=== PATIENT | female | born 1985 | race Caucasian/White ===

== ENCOUNTER 2019-06-11 07:47 | Inpatient (IN) | payer OTHER ==
--- NOTE | 2019-06-01 11:42 | HP ---
Admitting History and Physical - Primary Care Physician PCP: Ben Manning - Admission Chief Complaint: High risk for breast cancer History of Present Illness: Patient is a 34 yo female who is high risk for breast cancer secondary to family h/o breast cancer and melanoma as well as personal h/o BRCA 2 positive status. Father and paternal cousins are BRCA 2 positive as well. Mammo done 2018 was negative and MRI done 07/2018 was negative as well. Patient is now presenting for a bilateral mastectomy with reconstruction. History Source: Patient Limitations to Obtaining History: No Limitations - Past Medical History Pulmonary: Yes: Asthma - Past Surgical History Past Surgical History: Yes: None Home Medications - Allergies Allergies/Adverse Reactions: Allergies Allergy/AdvReac Type Severity Reaction Status Date / Time No Known Allergies Allergy Verified 06/01/19 11:45 - Home Medications Home Medications (free text): Symbicort, Ventolin, HFA, Singulair, BCP Family Disease History - Family Disease History Family Disease History: CA: Grandparent (pat GM-colon cancer, ), Other: Father (BRCA 2 positive) Other Family History: pat GF-BRCA 2 pos. pat aunt x 2- BRCA 2 pos. pat aunt- melanoma. pat cousin x 2 -BRCA 2 pos. pat cousin x 1-breast cancer and BRCA 2 pos. pat sec cousin prostate cancer-BRCA 2 pos Review of Systems - Review of Systems Constitutional: reports: No Symptoms Cardiovascular: reports: No Symptoms Respiratory: reports: No Symptoms Physical Examination Breast(s): Yes: Other (Ptotic D-cup breasts without palpable suspicious masses or adenopathy noted bilaterally.) Problem List - Problems (1) BRCA positive Code(s): Z15.01 - GENETIC SUSCEPTIBILITY TO MALIGNANT NEOPLASM OF BREAST; Z15.09 - GENETIC SUSCEPTIBILITY TO OTHER MALIGNANT NEOPLASM (2) Family history of breast cancer Code(s): Z80.3 - FAMILY HISTORY OF MALIGNANT NEOPLASM OF BREAST Assessment/Plan Assessment: High risk for breast cancer Plan: Bilateral mastectomy with reconstruction
[2019-06-04 11:45] VITALS: BMI 26.6
[2019-06-11] MEDS ORDERED: SODIUM CHLORIDE 0.9% P/F 10 ML VIAL IJ ONE (07:56)
[2019-06-11] MEDS ORDERED: GENTAMICIN SO4 80 MG/2 ML VIAL ONE (07:56)
[2019-06-11] MEDS ORDERED: BUPIVACAINE HCL/PF 2.5 MG/ML - 30 ML VIAL IJ ONE (07:56)
[2019-06-11] MEDS ORDERED: ceFAZolin SODIUM 1 GM VIAL ONE (07:56)
[2019-06-11] MEDS ORDERED: BUPIVACAINE LIPOSOME/PF (EXPAREL) 266 MG/20 ML VIAL ONE (07:58)
[2019-06-11] MEDS ORDERED: fentaNYL CITRATE 250 MCG/5 ML VIAL ONE (09:27)
[2019-06-11] MEDS ORDERED: MIDAZOLAM HCL 2 MG/2 ML SINGLE DOSE VIAL ONE (09:27)
[2019-06-11] MEDS ORDERED: ROCURONIUM BROMIDE 50 MG/5 ML SYRINGE ONE (09:28)
[2019-06-11] MEDS ORDERED: PROPOFOL 20 ML ONE (09:28)
[2019-06-11] MEDS ORDERED: SCOPOLAMINE HYDROBROMIDE 1 PATCH PATCH.TD72 ONE (09:45)
[2019-06-11] MEDS ORDERED: ONDANSETRON 4 MG/2 ML VIAL ONE (09:51)
[2019-06-11] MEDS ORDERED: ONDANSETRON 4 MG/2 ML VIAL IVPUSH PRN (12:09)
[2019-06-11] MEDS ORDERED: oxyCODONE HCL 5 MG TABLET PO PRN (12:09)
[2019-06-11] MEDS ORDERED: ACETAMINOPHEN 325 MG TABLET (FP) PO PRN (12:09)
[2019-06-11] MEDS ORDERED: ALBUTEROL SO4 8 GM HFA INHALER IH PRN (12:11)
[2019-06-11] MEDS ORDERED: PROMETHAZINE HCL 25 MG/1 ML VIAL IVPUSH PRN (12:46)
[2019-06-11] MEDS ORDERED: HYDROmorphone HCL CARPU-JECT 1 MG/1 ML DISP.SYRIN IVPUSH PRN (12:46)
[2019-06-11] MEDS ORDERED: NEOSTIGMINE METHYLSULFATE 0.5 MG/ML - 10 ML MDV ONE ×2 (12:54→12:57)
[2019-06-11] MEDS ORDERED: GLYCOPYRROLATE 0.2 MG/1 ML VIAL ONE ×3 (12:54→12:55)
[2019-06-11] MEDS ORDERED: PROMETHAZINE HCL 25 MG/1 ML VIAL ONE (13:29)
--- NOTE | 2019-06-11 15:03 | OP ---
DATE OF OPERATION: 06/11/2019 PREOPERATIVE DIAGNOSIS: Genetic susceptibility to breast cancer BRCA2 positive. POSTOPERATIVE DIAGNOSIS: Genetic susceptibility to breast cancer BRCA2 positive. PROCEDURE: Bilateral total nipple-sparing mastectomies through an inframammary approach with bilateral direct-implant reconstruction with AlloDerm. ANESTHESIA: General endotracheal. PRIMARY SURGEON: Steven Manning MD BEVELER: NAVARRO Corona PRIMARY SURGEON FOR THE BILATERAL DIRECT-IMPLANT RECONSTRUCTION: Steven Singh MD COMPLICATIONS: None. Briefly, the patient is a 34-year-old, G1, P1, premenopausal white female of Ashkenazi/[place] descent with a family history with her paternal cousin who had breast cancer at age 35, who tested BRCA2 positive. She has a paternal second cousin who had prostate cancer tested BRCA2 positive. Her paternal grandmother had colon cancer, and paternal aunt had melanoma. The patient tested BRCA2 positive in 2017 and also has 2 paternal cousins and 2 paternal aunts as well as her father and paternal grandfather all with the same mutation. The patient has been getting close surveillance and last mammography February 2019 was negative and MRI July 2018 was negative. She was seen in consultation for prophylactic risk reduction mastectomy and decided to go forward with the procedure and first had bilateral reduction mastopexy procedures by Dr. Singh. She now presents for the bilateral prophylactic nipple-sparing mastectomies. She was brought in through same-day surgery on June 11, 2019. In the holding area, site verification was made, and informed consent was obtained. She was marked preoperatively by the plastic surgeon. She was brought into the operating room and laid on the OR table in a supine position. Venodynes were placed on the lower extremities prior to induction. She received 2 g of Ancef prior to incision. She underwent general endotracheal anesthesia, and both breasts were sterilely prepped and draped in usual fashion. Timeout was performed. The left breast nipple-sparing mastectomy was first performed. Incision was made using the inframammary incision from her previous reduction mastopexy, and the incision was about 9 cm in length. Skin edges were everted, and the breast was retracted inferiorly using Kyle clamps. The PEAK radiofrequency device was used to raise the skin flap superiorly to the level of the clavicle, medially to the level of the sternum, laterally to the level of the latissimus, and inferiorly below the level of the inframammary fold. The breast was taken down off the pectoralis major muscle from inferomedial to superolateral, completely removed intact. It was oriented with a long lateral, short superior suture and weighed to allow for appropriate cosmetic result. Hemostasis was achieved, and the skin flaps were inspected and trimmed to remove all visible breast tissue and for a good cosmetic result. Retroareolar biopsy was taken underneath the left nipple-areolar complex, sent for frozen section, came back negative; so, the left nipple was spared. At this point, the right breast was approached. Again, a 10-cm incision was made using the previous inframammary incision from her prior reduction mastopexy surgery. Skin edges were everted, and breast was retracted inferiorly using Porter clamps. The skin flap was again raised using the PEAK radiofrequency device superiorly to the level of the clavicle, medially to the level of the sternum, laterally to the level of the latissimus, and inferiorly below the level of the inframammary fold. The breast was taken down off the pectoralis major muscle from inferomedial to superolateral and completely removed intact. It was oriented with a long lateral, short superior suture, weighed to allow for appropriate cosmetic result. Skin flap was inspected and trimmed to remove all visible breast tissue and for a good cosmetic result. A retroareolar biopsy was taken underneath the right nipple-areolar complex, sent for frozen section. It came back negative; so, the right nipple was spared. Hemostasis was achieved, and both wounds were copiously irrigated with warm sterile saline. At this point, Dr. Singh became the primary surgeon to perform the bilateral subpectoral, direct-implant reconstructions with AlloDerm. The AlloDerm will be sutured into the inferolateral aspect of both pectoralis major muscles to allow for the direct-implant reconstruction. We did use the Spy skin perfusion device during the case, which showed good skin perfusion and some delayed, but good perfusion of the nipple-areolar complexes. All wounds will be closed by Plastic Surgery using interrupted 3-0 PDS and a running 4-0 subcuticular PDS suture. Two drains will be placed around each implant, brought through separate stab incisions on the lateral skin fold. These will be sutured in place. All sponge and needle counts were correct at this point of the case, and estimated blood loss was about 100 mL. She was hemodynamically stable at this point. The patient will be extubated and recovered in the postanesthesia care unit after the reconstruction is performed. She will be admitted postoperatively for pain and wound management. STEVEN MANNING M.D. [id number]
[2019-06-11] MEDS: CEFAZOLIN 1 GM/D5W 1 GM/50 ML BAG IVPB SCH ×2 (15:15→21:22)
[2019-06-11] MEDS: diazePAM 5 MG TABLET PO PRN (17:05)
[2019-06-11] MEDS ORDERED: MONTELUKAST NA 10 MG TABLET PO SCH (18:00)
[2019-06-11] MEDS ORDERED: PT OWN MED DRAWER 7, Y5N ONE (21:06)
[2019-06-11] MEDS: BUDESONIDE/FORMETEROL FUMARATE 80/4.5 mcg INHALER IH SCH (21:23)
[2019-06-11] MEDS: DEXTROSE 5%-0.45% SALINE 1,000 ML IV SCH (21:23)
[2019-06-11] MEDS: MONTELUKAST NA 10 MG TABLET PO SCH (21:23)
[2019-06-12] MEDS: CEFAZOLIN 1 GM/D5W 1 GM/50 ML BAG IVPB SCH ×4 (03:30→20:57)
--- NOTE | 2019-06-12 07:40 | SPA.POSTOP ---
- POST-OP NOTE POD #1 s/p Bilateral mastectomy with reconstruction with implants and alloderm No acute events since surgical procedure per RN notes. Patient resting comfortably. Pain management via prn meds. Denies n/v/f/c, CP or SOB. Last Vital Signs Temp Pulse Resp BP Pulse Ox 98.7 F 71 19 113/57 L 100 06/12/19 04:00 06/12/19 04:00 06/12/19 04:00 06/12/19 04:00 06/12/19 01:24 Vital Signs Temp 98.7 F 06/12/19 04:00 Pulse 71 06/12/19 04:00 Resp 19 06/12/19 04:00 BP 113/57 L 06/12/19 04:00 Pulse Ox 100 06/12/19 01:24 Intake & Output 06/11/19 06/11/19 06/12/19 11:59 23:59 11:59 Intake Total 1500 600 Output Total 745 100 Balance 1500 -145 -100 Weight 160 lb Intake: IV 1500 200 Oral 400 Output: Drainage 245 100 #1R 30 20 #2R 40 20 #3L 40 20 #4L 45 40 Urine 500 Void 500 Other: Voiding Method Toilet Height 5 ft 5 in Body Mass Index (BMI) 26.6 Physical Exam General: No acute distress. Chest: incisions are clean with no erythema or discharge, nipples and skin pink and warm. Drains in place with serosanguinous drainage. Cor: Regular rhythm LE: Soft, non-tender bilat. SCD's bilat. Problem List - Problems (1) BRCA positive Assessment/Plan: Plan -pt appears to be doing well -OOB/ambulate -pain control -DVT ppx -monitor drain output. Code(s): Z15.01 - GENETIC SUSCEPTIBILITY TO MALIGNANT NEOPLASM OF BREAST; Z15.09 - GENETIC SUSCEPTIBILITY TO OTHER MALIGNANT NEOPLASM
[2019-06-12 07:53] LABS: HEMATOCRIT 36.4 % (32.4-45.2); HEMOGLOBIN 12.3 GM/dl (10.7-15.3); MCH 30.5 pg (25.7-33.7); MCHC 33.9 g/dl (32.0-36.0); MEAN CELL VOLUME 90.1 fl (80-96); MEAN PLT VOLUME 10.8 fl (7.5-11.1); PLATELET COUNT 209 K/MM3 (134-434); RBC 4.04 M/mm3 (3.60-5.2); RDW 12.5 % (11.6-15.6); WHITE BLOOD COUNT 9.7 K/mm3 (4.0-10.8)
[2019-06-12] MEDS: diazePAM 5 MG TABLET PO PRN (08:46)
--- NOTE | 2019-06-12 09:20 | PN ---
Progress Note, Physician Chief Complaint: BRCA positive S/P bilateral total mastectomies nipple sparing, alloderm and implant reconstruction History of Present Illness: Patient OOB in hallway, no nausea or vomiting, oxycodone and valium prn for pain , Bare hugger for next [address] Manning - Current Medication List Current Medications: Active Medications Acetaminophen (Tylenol -) 650 mg PO Q4H PRN PRN Reason: FEVER Albuterol Sulfate (Ventolin Hfa Inhaler -) 2 puff IH PRN PRN PRN Reason: ASTHMA Budesonide/Formoterol Fumarate (Symbicort 80/4.5mcg -) 2 puff IH BID YUDI Last Admin: 06/11/19 21:23 Dose: Not Given Diazepam (Valium -) 5 mg PO Q8H PRN PRN Reason: MUSCLE SPASMS Last Admin: 06/12/19 08:46 Dose: 5 mg Ethinyl Estradiol/Norethindron/Iron (Estrostep Fe-28 (Nf) -) 1 tab PO DAILY YUDI Hydromorphone HCl (Dilaudid Injection -) 0.5 mg IVPUSH [id number] PRN PRN Reason: PAIN-PACU ORDER X 4 DOSES ONLY Cefazolin Sodium (Ancef 1 Gm Premixed Ivpb -) 1 gm in 50 mls @ 100 mls/hr IVPB Q6H-IV YUDI Stop: 06/18/19 14:59 Last Admin: 06/12/19 03:30 Dose: 100 mls/hr Dextrose/Sodium Chloride (D5-1/2ns -) 1,000 mls @ 100 mls/hr IV ASDIR [facility] Last Admin: 06/11/19 21:23 Dose: 100 mls/hr Lactated Ringer's (Lactated Ringers Solution) 1,000 mls @ 75 mls/hr IV ASDIR YUDI Montelukast Sodium (Singulair -) 10 mg PO HS [facility] Last Admin: 06/11/19 21:23 Dose: Not Given Ondansetron HCl (Zofran Injection) 4 mg IVPUSH Q6H PRN PRN Reason: NAUSEA AND/OR VOMITING Oxycodone HCl (Roxicodone -) 5 mg PO Q4H PRN PRN Reason: PAIN LEVEL 1-5 Last Admin: 08/15/19 22:17 Dose: 5 mg Oxycodone HCl (Roxicodone -) 10 mg PO Q4H PRN PRN Reason: PAIN LEVEL 6-10 Promethazine HCl (Phenergan Injection -) 12.5 mg IVPUSH Q6H PRN PRN Reason: NAUSEA-FOR RESCUE AFTER 15 MIN Last Admin: 06/11/19 13:30 Dose: 6.25 mg - Objective Vital Signs: Vital Signs Temperature 98.7 F 06/12/19 04:00 Pulse Rate 71 06/12/19 04:00 Respiratory Rate 06/12/19 04:00 Blood Pressure 113/57 L 06/12/19 04:00 O2 Sat by Pulse Oximetry (%) 100 06/12/19 01:24 Constitutional: Yes: No Distress Breast(s): Yes: Other (Bilateral flaps and nipples viable,incision intact with steristrips, Rajesh drains functioning well) Labs: CBC, BMP 06/12/19 07:00 Problem List - Problems (1) BRCA positive Code(s): Z15.01 - GENETIC SUSCEPTIBILITY TO MALIGNANT NEOPLASM OF BREAST; Z15.09 - GENETIC SUSCEPTIBILITY TO OTHER MALIGNANT NEOPLASM Assessment/Plan IV antibiotics OOB and SCD while in bed Valium/oxycodone prn pain Spirometry Bare hugger next 24 hours plan for discharge tomorrow
[2019-06-12] MEDS ORDERED: PT OWN MED DRAWER 7, Y5N ONE (09:30)
[2019-06-12] MEDS: LACTATED RINGERS SOLUTION 1,000 ML IV SCH ×2 (09:49→15:03)
[2019-06-12] MEDS: BUDESONIDE/FORMETEROL FUMARATE 80/4.5 mcg INHALER IH SCH ×2 (09:52→21:14)
[2019-06-12] MEDS ORDERED: NORETH A ET ESTRA PO SCH (10:00)
[2019-06-12] MEDS ORDERED: FE FUMARATE PO SCH (10:00)
--- NOTE | 2019-06-12 12:04 | PN ---
Progress Note (short form) - Note Progress Note: ANESTHESIA POST OP 34 YO FEMALE POD#1 S/P BL MASTECTOMY, GETA Patient resting in bed. Tolerating PO. Pain adequately controlled VSS, Afebrile Continue current care. Encouraged IS and ambulation
[2019-06-12] MEDS: oxyCODONE HCL 5 MG TABLET PO PRN ×3 (14:58→22:48)
[2019-06-12] MEDS: DEXTROSE 5%-0.45% SALINE 1,000 ML IV SCH (15:03)
[2019-06-12] MEDS: MONTELUKAST NA 10 MG TABLET PO SCH (21:14)
[2019-06-13] MEDS: CEFAZOLIN 1 GM/D5W 1 GM/50 ML BAG IVPB SCH ×2 (03:50→09:53)
[2019-06-13] MEDS: oxyCODONE HCL 5 MG TABLET PO PRN ×2 (04:39→09:53)
[2019-06-13] MEDS: BUDESONIDE/FORMETEROL FUMARATE 80/4.5 mcg INHALER IH SCH (09:54)
--- NOTE | 2019-06-13 10:30 | PN ---
Progress Note, Physician Chief Complaint: Genetic susceptibility for breast cancer BRCA2+ History of Present Illness: The patient was found to be BRCA2 positive and decided on bilateral prophylactic nipple sparing mastectomies and direct to implant reconstruction which was performed on June 11, 2019. She was admitted postoperatively for postop pain and wound care. - Current Medication List Current Medications: Active Medications Acetaminophen (Tylenol -) 650 mg PO Q4H PRN PRN Reason: FEVER Albuterol Sulfate (Ventolin Hfa Inhaler -) 2 puff IH PRN PRN PRN Reason: ASTHMA Budesonide/Formoterol Fumarate (Symbicort 80/4.5mcg -) 2 puff IH BID YUDI Last Admin: 06/13/19 09:54 Dose: 2 puff Diazepam (Valium -) 5 mg PO Q8H PRN PRN Reason: MUSCLE SPASMS Last Admin: 06/12/19 08:46 Dose: 5 mg Ethinyl Estradiol/Norethindron/Iron (Estrostep Fe-28 (Nf) -) 1 tab PO DAILY YUDI Hydromorphone HCl (Dilaudid Injection -) 0.5 mg IVPUSH [id number] PRN PRN Reason: PAIN-PACU ORDER X 4 DOSES ONLY Cefazolin Sodium (Ancef 1 Gm Premixed Ivpb -) 1 gm in 50 mls @ 100 mls/hr IVPB Q6H-IV YUDI Stop: 06/18/19 14:59 Last Admin: 06/13/19 09:53 Dose: 100 mls/hr Dextrose/Sodium Chloride (D5-1/2ns -) 1,000 mls @ 100 mls/hr IV ASDIR [facility] Last Admin: 06/12/19 15:03 Dose: Not Given Lactated Ringer's (Lactated Ringers Solution) 1,000 mls @ 75 mls/hr IV ASDIR YUDI Last Admin: 06/12/19 15:03 Dose: Not Given Montelukast Sodium (Singulair -) 10 mg PO HS [facility] Last Admin: 06/12/19 21:14 Dose: 10 mg Ondansetron HCl (Zofran Injection) 4 mg IVPUSH Q6H PRN PRN Reason: NAUSEA AND/OR VOMITING Oxycodone HCl (Roxicodone -) 5 mg PO Q4H PRN PRN Reason: PAIN LEVEL 1-5 Last Admin: 06/11/19 22:17 Dose: 5 mg Oxycodone HCl (Roxicodone -) 10 mg PO Q4H PRN PRN Reason: PAIN LEVEL 6-10 Last Admin: 06/13/19 09:53 Dose: 10 mg Promethazine HCl (Phenergan Injection -) 12.5 mg IVPUSH Q6H PRN PRN Reason: NAUSEA-FOR RESCUE AFTER 15 MIN Last Admin: 06/11/19 13:30 Dose: 6.25 mg - Objective Vital Signs: Vital Signs Temperature 98.9 F 06/13/19 07:39 Pulse Rate 83 06/13/19 07:39 Respiratory Rate 19 06/13/19 07:39 Blood Pressure 106/57 L 06/13/19 07:39 O2 Sat by Pulse Oximetry (%) 100 06/13/19 07:39 Constitutional: Yes: Well Nourished, No Distress, Calm Eyes: Yes: WNL HENT: Yes: Atraumatic, Normocephalic Neck: Yes: WNL Cardiovascular: Yes: Regular Rate and Rhythm Respiratory: Yes: Regular, CTA Bilaterally Gastrointestinal: Yes: Normal Bowel Sounds, Soft ...Rectal Exam: Yes: Deferred Genitourinary: Yes: WNL Breast(s): Yes: Other (Mastectomy wounds clean, dry, and intact. Drains functioning well. Skin flap warm and viable with mild nipple color change.) Musculoskeletal: Yes: WNL Extremities: Yes: WNL Integumentary: Yes: WNL Wound/Incision: Yes: Clean/Dry, Well Approximated Neurological: Yes: Alert, Oriented ...Motor Strength: WNL Psychiatric: Yes: WNL Labs: CBC, BMP 06/12/19 07:00 Problem List - Problems (1) BRCA positive Assessment/Plan: The patient is doing well POD#2 s/p bilateral prophylactic nipple sparing mastectomies with direct to implant reconstructions with alloderm. She has good pain control and is ambulating well. Her wounds are healing well with viable skin flaps and only mild color change around the nipple. She had prior reduction mastopexies to allow the direct to implant nipple sparing procedure. Drains functioning well. Stable for discharge today. Home on percocet for pain and cefadroxil antibiotics. Follow up with Drs. Manning and Samantha in 1 week. Code(s): Z15.01 - GENETIC SUSCEPTIBILITY TO MALIGNANT NEOPLASM OF BREAST; Z15.09 - GENETIC SUSCEPTIBILITY TO OTHER MALIGNANT NEOPLASM (2) Family history of breast cancer Code(s): Z80.3 - FAMILY HISTORY OF MALIGNANT NEOPLASM OF BREAST
--- NOTE | 2019-06-13 10:35 | DS ---
Physical Examination Vital Signs: Vital Signs Temperature 98.9 F 06/13/19 07:39 Pulse Rate 83 06/13/19 07:39 Respiratory Rate 19 06/13/19 07:39 Blood Pressure 106/57 L 06/13/19 07:39 O2 Sat by Pulse Oximetry (%) 100 06/13/19 07:39 Constitutional: Yes: Well Nourished, No Distress, Calm Eyes: Yes: WNL HENT: Yes: Atraumatic, Normocephalic Neck: Yes: WNL Cardiovascular: Yes: Regular Rate and Rhythm Respiratory: Yes: Regular, CTA Bilaterally Gastrointestinal: Yes: Normal Bowel Sounds, Soft ...Rectal Exam: Yes: Deferred Renal/: Yes: WNL Breast(s): Yes: Other (Matectomy wounds clean, dry, and intact with viable skin flaps and only mild nipple skin color change. Drains functioning well.) Musculoskeletal: Yes: WNL Extremities: Yes: WNL Integumentary: Yes: WNL Wound/Incision: Yes: Clean/Dry, Well Approximated Neurological: Yes: Alert, Oriented ...Motor Strength: WNL Labs: CBC, BMP 06/12/19 07:00 Discharge Summary Reason For Visit: GENETIC SUSCEPTIBILITY Genetic susceptibility for breast cancer BRCA2+ Procedures: Principal: Bilateral nipple sparing mastectomies with direct to implant reconstruction with alloderm Hospital Course: The patient was admitted postoperatively for postop pain control and wound care. She was doing well and had good pain control with viable skin flaps for discharge by POD#2. She should follow up with Drs. Manning and Samantha in 1 week. NO heavy lifting or exercise. No bath shower until drains removed. Record drain outputs daily. Keep compressive bra on day/night. Condition: Good - Instructions Diet, Activity, Other Instructions: Post Operative Instructions - [facility] We hope your recovery will be uneventful. For those of you who have been given general anesthesia, there is a possibility you might have some lightheadedness and possibly nausea. It is important that each patient, especially those who have had general anesthesia, follow these instructions, please: 1. Do NOT operate a motor vehicle for 24 hours. 2. Do NOT drink any alcoholic beverages for 24 hours. 3. Do NOT take any sedatives, narcotics, or tranquilizers for 24 hours unless specifically ordered by your surgeon. 4. Do NOT undertake any strenuous exercise or outside activity for 24 hours unless specifically permitted by your surgeon. 5. Eat light foods that are easy to digest. If you have any problems with nausea and vomiting, lie down and rest. If it continues, call your surgeon. 6. Call your surgeon AT ONCE if you have problems with: a. Bleeding b. Urinating c. Excessive pain or drainage d. Numbness If any problems occur, call your physician first. If you cannot reach him/her, call the Ambulatory Surgery Unit at [phone], or the Emergency Room at [phone]. Follow up with Drs. Manning / Clau in 7 days. Medication: Vicodin E-S OR Percocet 1-2 tablets every 4-6 hrs as needed for 5-7 days. Wound Care: Keep wound dry and clean for 48 hours. You may remove the dressing after 48 hours and may shower. Keep steri-strips in place until follow-up appointment No heavy lifting or strenuous activities. BREAST SURGERY INSTRUCTIONS Zeke Manning M.D., FACS Ben Manning M.D., FACS Consuelo Olguin M.D., FACS 1. Please call the office at to make a follow up appointment with your surgeon. This number can be also used for any urgent issues you may have. 2. Call us immediately if any of the following occur: *Bleeding from the incision or drain site (a small amount is normal) *Fever or chills *Redness and worsening tenderness around the surgical site *Drainage of pus or fluid from the incision or drain site 3. You may change the surgical dressing two (2) days after your surgery, and may shower then. If you have drains, you may shower after they have been removed, until then take a sponge bath. 4. It is normal for there to be some bruising and tenderness around the surgical site, and the breast may also be firm in this area. 5. Your surgeon used 3M DuraPrep Surgical Solution, a bacteria-killing skin preparation. It is recommended that this film remain on the skin after the procedure. The film will gradually wear away. If, however, early removal is desired: 1. Apply 8610 or 8611 3M Remover solution to the prepped area, keeping away from the wound edge or puncture site. Wipe off with a disposable towel. OR 2. Soak gauze with 70% Isopropyl alcohol and place on the prepped area for at least 40 seconds. Lightly scrub to remove the solution. 6. Please wear a comfortable bra (sports or surgical bra) all day and all night until your first follow-up visit with your surgeon. 7. The pain medicine you have been prescribed may make you constipated; make sure you drink plenty of water. You may use an over the counter laxative if needed. 8. You may resume your normal diet after surgery, although you may want to avoid rich foods for the first twenty-four (24) hours after surgery. Alcoholic drinks should be avoided while taking the prescribed pain medicine. 9. You may resume normal activities as long as there is no discomfort, but do not do upper body exercises until after your follow-up appointment. Do not lift anything heavier than a large phone book. You may resume driving once you have stopped taking the prescribed pain medicine and feel comfortable doing arm movements. WEAR BRA, No shower, empty and record VICKIE output twice daily Referrals: Ben Manning MD [Staff Physician] - Rudy Singh MD [Staff Physician] - Disposition: HOME - Home Medications Comprehensive Discharge Medication List: Ambulatory Orders Albuterol Sulfate Inhaler - [Ventolin HFA Inhaler -] 2 inh PO PRN PRN 06/04/19 Budesonide/Formeterol Fumarate [SYMBICORT 80/4.5mcg -] 2 inh PO BID 06/04/19 Magnesium 3 tab PO DAILY 06/04/19 Montelukast Sodium [Singulair] 10 mg PO DAILY 06/04/19 Multivitamin [Multiple Vitamins] 1 each PO DAILY 06/04/19 Norethindrone-E.estradiol-Iron [Tilia Fe 28 Tablet] 1 each PO DAILY 06/04/19 Cefadroxil 500 mg PO BID 10 Days #20 capsule 06/12/19 Diazepam [Valium] 5 mg PO Q8H #10 tablet MDD 2 06/12/19 Oxycodone HCl/Acetaminophen [Percocet 5-325 mg Tablet] 1 - 2 tab PO Q6H PRN #30 tab MDD 6 06/12/19
[2019-06-13] MEDS: DEXTROSE 5%-0.45% SALINE 1,000 ML IV SCH (12:04)
[2019-06-13] MEDS: LACTATED RINGERS SOLUTION 1,000 ML IV SCH (12:05)
[2019-06-13 13:07] VITALS: BP 110/58; PULSE 79; TEMP 98.1
--- NOTE | 2019-06-15 18:50 | OP ---
DATE OF OPERATION: 06/11/2019 PREOPERATIVE DIAGNOSES: 1. Bilateral acquired chest wall deformity status post bilateral mastectomy (611.89). 2. Personal history of genetic carcinoma. POSTOPERATIVE DIAGNOSES: 1. Bilateral acquired chest wall deformity status post bilateral mastectomy (611.89). 2. Personal history of genetic carcinoma. PROCEDURE: 1. Right immediate breast reconstruction utilizing immediate insertion of silicone breast implant and AlloDerm SELECT tissue matrix contour medium perforated tissue reconstruction. 2. Left immediate breast reconstruction utilizing immediate insertion of silicone breast implant and AlloDerm SELECT tissue matrix contour medium perforated tissue reconstruction. 3. Intravenous injection of indocyanine green dye and intraoperative diagnostic evaluation of non-coronary intraoperative fluorescein vascular angiography x 2. SURGEON: Dr. Hattie Singh ADMITTING COUNSELOR: Steven Manning MD ANESTHESIA: GENERAL OPERATIVE PROCEDURE IN DETAIL: The patient was taken to the operating room. After induction of general anesthesia in the supine position, both arms were extended and padded. Venodyne boots were placed. The entire chest wall was painted with ChloraPrep solution over its entire extent, and sterile drapes were placed in the usual fashion. The markings, which had been made in the standing position preoperatively, were reoutlined with the patient's knowledge. Time-out procedure was performed. Attention was turned by Dr. Manning to the mastectomies. Bilateral inframammary incisions were made and Dr. Manning performed mastectomies. This will be dictated under separate cover. Upon completion of the mastectomies, the wounds were copiously irrigated and attention was turned to the right breast. A subpectoral dissection was begun on the right breast, superiorly from the second rib, medially to the sternal fibers, and down to the inframammary fold, elevating the pectoralis major muscle from its insertion. At this point, an 8.0 x 16.0 sheet of AlloDerm was brought into the field and sutured superiorly along the pectoralis major muscle after rehydration. This was carried along the lateral mammary fold and down the side of the breast reconstruction. At this point, a Sientra smooth, round, high-profile, style 107, 505 mL implant was chosen. The left breast tissue removed was 527 gm, and the right breast approximately 497 gm. This implant was placed and then sutured with 3-0 Vicryl suture continued along the inframammary fold, completely covering the implant itself. The exact same procedure was carried out symmetrically on the opposite breast, also placing a Sientra smooth, round, high-profile, style 107, 505 mL implant in the same subpectoral pocket. Good symmetry was seen in the sitting position. After the implants were in place, the patient was injected with 10 mL of indocyanine green dye and the Spy imaging system was brought into the field. The skin flowed to the right and left breasts and the nipple areolar complex, and the entire skin flaps were evaluated and seen to be viable with good blood flow. Two Stevo drains were brought out through separate stab wounds laterally. The Smart Infuser pump catheter was inserted medially and into the subpectoral position. Both wounds were closed symmetrically using 3-0 PDS suture on the deep tissue, 3-0 in a deep dermal fashion, and 4-0 in a subcuticular fashion. Both wounds were dressed sterilely with Mastisol and Steri-Strips with a surgical bra and a compression strap. The patient tolerated the procedure well. She was awakened, extubated and transferred to the recovery room in satisfactory condition. The employee relations assistant was present during the entire portion of the operation and closure. STEVEN SINGH M.D. [id number]
--- NOTE | 2019-06-16 10:39 | PATH ---
Surgical Pathology Report Patient Name: HANSA MILLS [facility]. Rec. #: [id number] /Age/Gender: 1985 (Age: 34) / F Account: [id number] Location[facility] Taken: 06/11/2019 Received: 06/11/2019 Reported: 06/16/2019 Physicians: Ben Manning M.D. Specimen(s) Received A: RIGHT RETROAREOLAR BIOPSY (FS) B: LEFT RETROAREOLAR BIOPSY (FS) C: RIGH BREAST D: LEFT BREAST Clinical History BRCA 2+ bilateral prophylactic Intraoperative Consult Diagnosis A. Right retroareolar biopsy, frozen section: Benign breast tissue. B. Left retroareolar biopsy, frozen section: Benign breast tissue. Ze Crocker 06/11/19 Final Diagnosis A. RETROAREOLA, RIGHT, BIOPSY (FS): BENIGN BREAST TISSUE; NEGATIVE FOR MALIGNANCY. B. RETROAREOLA, LEFT, BIOPSY (FS): BENIGN BREAST TISSUE; NEGATIVE FOR MALIGNANCY. C. BREAST, RIGHT, NIPPLE- SPARING MASTECTOMY: BENIGN BREAST TISSUE SHOWING STROMAL FIBROSIS, FAT NECROSIS AND GIANT CELL REACTION, CONSISTENT WITH CHANGES OF PRIOR PROCEDURE. D. BREAST, LEFT, NIPPLE-SPARING MASTECTOMY: BENIGN BREAST TISSUE SHOWING STROMAL FIBROSIS, FAT NECROSIS AND GIANT CELL REACTION, CONSISTENT WITH CHANGES OF PRIOR PROCEDURE. Electronically Signed Viji Ballard M.D. Gross Description A. Received fresh in a container labeled "right retroareolar biopsy", is a portion of fibroadipose tissue measuring 1.8 x 0.7 x 0.3 cm. Frozen section is performed on the specimen. The frozen section residue is entirely submitted in one cassette. B. Received fresh in a container labeled "left retroareolar biopsy", is a portion of fibroadipose tissue measuring 1.7 x 0.7 x 0.3 cm. Frozen section is performed on the specimen. The frozen section residue is entirely submitted in one cassette. C. Received in formalin, labeled "right breast," is a 446 gram, 15.0 x 12.5 x 5.5 cm. right mastectomy specimen with a short suture marking the superior aspect and a long suture marking the lateral aspect of the specimen, per the surgeon. There is no skin or nipple present. The deep margin is inked black and the anterior soft tissue margin is inked blue. The specimen is serially sectioned from lateral to medial. Sectioning reveals multifocal white fibrous tissue. Concreting Supervisor sections are submitted in 14 cassettes as follows: 1-3-upper outer quadrant; 4-6-lower outer quadrant; 7-9-upper inner quadrant; 10-12-lower inner quadrant; 13-anterior soft tissue margin; 14-deep margin. Time to formalin fixation: 60 minutes Total formalin fixation time: Approximately 30 hours. D. Received in formalin, labeled "left breast," is a 525 gram, 16.0 x 15.0 x 5.0 cm. left mastectomy specimen with a short suture marking the superior aspect and a long suture marking the lateral aspect of the specimen, per the surgeon. There is no skin or nipple present. The deep margin is inked black and the anterior soft tissue margin is inked blue. The specimen is serially sectioned from medial to lateral. Sectioning reveals multifocal white fibrous tissue. Concreting Supervisor sections are submitted in 14 cassettes as follows: 1-3-upper outer quadrant; 4-6-lower outer quadrant; 7-9-upper inner quadrant; 10-12-lower inner quadrant; 13-anterior soft tissue margin; 14-deep margin. Time to formalin fixation: 51 minutes Total formalin fixation time: Approximately 30 hours. NICHOL/06/11/2019 milla/06/11/2019
--- NOTE | 2019-06-18 07:54 | SURG ---
Surgery Billet Heater Operator Note Billet Heater Operator: Ashlie Lundberg PA-C (Suzy) Date of Service: 06/11/19 Diagnosis: 1. Bilateral acquired chest wall deformity s/p bilateral mastectomy (611.89) 2. Personal history of carcinoma Procedure: 1. Right immediate breast reconstruction utilizing immediate insertion of silicone breast implant and AlloDerm SELECT tissue matrix contour medium perforated tissue reconstruction. 2. Left immediate breast reconstruction utilizing immediate insertion of silicone breast implant and AlloDerm SELECT tissue matrix contour medium perforated tissue reconstruction. 3. Intravenous insertion of indocyanine green dye and intraoperative diagnostic evaluation of non-coronary fluorescein vascular angiography x 2. I was present for the entirety of the operative procedure. For further detail, please refer to operative report. Visit type - Case Type Case Type: Scheduled - Emergency Emergency Visit: No - New patient This patient is new to me today: Yes Date on this admission: 06/18/19 - Critical Care Critical Care patient: No
== END 2019-06-13 12:15 | disposition home or self-care (01) | DRG 585 ==
LOC: FM/S 07:47
PROVIDERS: ADMIT Surgery Surgical Oncology; ATTEND Surgery Surgical Oncology
PROC: 4A1GXSH Monitoring of Skin and Breast Vascular Perfusion using Indocyanine Green Dye, External Approach (ICD-10-PCS; 2019-06-11)
PROC: 0HTV0ZZ Resection of Bilateral Breast, Open Approach (ICD-10-PCS; principal; 2019-06-11 10:27)
PROC: 0HUV0JZ Supplement Bilateral Breast with Synthetic Substitute, Open Approach (ICD-10-PCS; 2019-06-11 10:27)
DX: Z40.01 Encounter for prophylactic removal of breast (principal); Z15.01 Genetic susceptibility to malignant neoplasm of breast; Z80.3 Family history of malignant neoplasm of breast; M95.4 Acquired deformity of chest and rib
CPT/HCPCS: 36415; 84703; 85027; 88307-TC; 88331-TC; 94760